=== PATIENT | male | born 1965 | race Caucasian/White ===

== ENCOUNTER 2017-04-01 19:38 | Inpatient (IN) | payer OTHER ==
[~2017-04-01] VITALS: Ht 177.8 cm; Wt 65.6 kg
[2017-04-01] VITALS (9 sets, daily range): BP systolic 139–163; BP diastolic 81–95
[~2017-04-01 19:38] MED LIST: ANAPROX DS550 M1 PO; ASPIRIN325 MG PO; COLACE100 MG PO; DIOVAN80 MG PO; FINASTERIDE5 MG PO; HYDROCODON-ACE1 EAC7 PO; KEFLEX500 MG PO; LOPRESSOR50 MG PO; LOSARTAN POTASS50 MG PO; METHADONE H5 MG/5 ML PO; METOPROLOL TART25 MG PO; OMEPRAZOLE20 MG PO; PERCOCET 5/31 TABLET PO; PLAVIX75 MG PO; SIMVASTATIN40 MG PO; TAMSULOSIN HCL0.4 MG PO; TOPROL XL100 MG PO
[2017-04-01 20:00] LABS: CREATININE 1.2 mg/dL (0.6-1.3); POTASSIUM 3.5 mEq/L (3.7-5.4)
[2017-04-01 20:04] LABS: BASOPHIL COUNT 0.1 K/uL (0-0.1); EOSINOPHIL (%) 2.9 % (0-5); EOSINOPHIL COUNT 0.3 K/uL (0-0.3); HEMATOCRIT 41.9 % (38.0-50.0); IMMATURE GRANULOCYTE (%) 0.3 % (0.0-0.7); INSTRUMENT ABS NEUTROPHIL CT 6.5 K/uL; LYMPHOCYTE COUNT 1.5 K/uL (1.0-2.8); MCH 31.6 PG (29.0-34.0); MCHC 34.1 G/DL (30.0-36.0); MCV 92.5 FL (86-99); MEAN PLAT.VOLUME 10.6 uM^3 (9.0-12.4); MONOCYTE (%) 15.1 % (3-12); MONOCYTE COUNT 1.5 K/uL (0-0.8); NEUTROPHIL (%) 66.2 % (45-76); NEUTROPHIL COUNT 6.5 K/uL (1.8-6.4); PLATELET COUNT 200 K/uL (156-360); RBC DIS.WIDTH-CV 13.4 % (11.8-14.6); RBC DIS.WIDTH-SD 45.7 % (39-53); RED BLOOD COUNT 4.53 M/uL (4.00-5.50); WHITE BLOOD COUNT 9.8 K/uL (4.1-10.2)
[2017-04-01 20:10] LABS: PROTHROMBIN TIME 11.1 SEC (10.2-12.9)
[2017-04-01 20:13] LABS: PTT 31.3 SEC (25-37)
[2017-04-01 20:24] LABS: AMYLASE 39 IU/L (1-118); ANION GAP 11 MEQ/L (2-14); CHLORIDE 98 MEQ/L (99-109); POTASSIUM 3.6 MEQ/L (3.7-5.4); SAMPLE HEMOLYSIS CHECK 0; SAMPLE ICTERIC CHECK 0; SAMPLE LIPEMIA CHECK 0; SODIUM 133 MEQ/L (136-147)
[2017-04-01 20:32] LABS: GFR ESTIMATE (CALCULATED) > 59 mL/min/ (58.99-99999); GLUCOSE 82 mg/dL (70-99); LIPASE 5 U/L (1.0-51.0); SERUM ETHYL ALCOHOL < 10 mg/dL; UREA NITROGEN (BUN) 14 mg/dL (9-23)
[2017-04-01 20:34] LABS: TROP-I INTERPRETATION NEGATIVE; TROPONIN-I 0.02 ng/mL (0.0-0.30)
[2017-04-01 23:41] LABS: METH RESISTANT S AUREUS PCR NEGATIVE (NEGATIVE)
[2017-04-01 23:42] LABS: PROBE CHECK PASS; SPECIMEN PROCESSING CONTROL PASS
[2017-04-02] VITALS (14 sets, daily range): BP systolic 115–153; BP diastolic 71–99
[2017-04-02 06:58] LABS: BASOPHIL COUNT 0.1 K/uL (0-0.1); EOSINOPHIL (%) 2.2 % (0-5); EOSINOPHIL COUNT 0.2 K/uL (0-0.3); HEMATOCRIT 42.5 % (38.0-50.0); IMMATURE GRANULOCYTE (%) 0.6 % (0.0-0.7); IMMATURE GRANULOCYTE COUNT 0.1 K/uL; INSTRUMENT ABS NEUTROPHIL CT 5.6 K/uL; LYMPHOCYTE COUNT 1.4 K/uL (1.0-2.8); MCH 31.3 PG (29.0-34.0); MCHC 32.9 G/DL (30.0-36.0); MCV 94.9 FL (86-99); MEAN PLAT.VOLUME 10.7 uM^3 (9.0-12.4); MONOCYTE COUNT 1.3 K/uL (0-0.8); NEUTROPHIL (%) 65.3 % (45-76); NEUTROPHIL COUNT 5.6 K/uL (1.8-6.4); PLATELET COUNT 184 K/uL (156-360); RBC DIS.WIDTH-CV 13.8 % (11.8-14.6); RBC DIS.WIDTH-SD 48.7 % (39-53); RED BLOOD COUNT 4.48 M/uL (4.00-5.50); WHITE BLOOD COUNT 8.5 K/uL (4.1-10.2)
[2017-04-02] MEDS ORDERED: JEVITY 1.5 CAL237 ML PO (07:13)
[2017-04-02] MEDS ORDERED: BOOST PLUS237 ML PO (07:14)
[2017-04-02 07:22] LABS: ANION GAP 7 MEQ/L (2-14); CHLORIDE 103 MEQ/L (99-109); GFR ESTIMATE (CALCULATED) > 59 mL/min/ (58.99-99999); GLUCOSE 67 mg/dL (70-99); HDL CHOLESTEROL 45 MG/DL (Desirable>=40); LDL CHOLESTEROL 61 mg/dL (Desirable<100); NON-HDL CHOLESTEROL 72 mg/dL (Desirable<160); POTASSIUM 3.8 MEQ/L (3.7-5.4); SAMPLE HEMOLYSIS CHECK 0; SAMPLE ICTERIC CHECK 0; SAMPLE LIPEMIA CHECK 0; SODIUM 139 MEQ/L (136-147); TOTAL CHOLESTEROL 117 mg/dL (Desirable<200); TRIGLYCERIDES 56 MG/DL (Normal: <150); UREA NITROGEN (BUN) 12 mg/dL (9-23)
[2017-04-02 07:26] LABS: TROP-I INTERPRETATION POSITIVE; TROPONIN-I 16.14 ng/mL (0.0-0.30)
[2017-04-02 08:02] LABS: CK-MB 121.5 ng/mL (0.0-4.9)
[2017-04-02 08:03] LABS: TOTAL CK 1194 IU/L (1-294)
[2017-04-02 08:04] LABS: CREATINE KINASE 1194 IU/L (1-294)
[2017-04-02 09:13] LABS: Estimated Average Glucose 111 mg/dL (70-123); HEMOGLOBIN A1c (GLYCOHEMOGLOB) 5.5 % HGB (Below 5.7)
[2017-04-02] MEDS ORDERED: METHADONE H5 MG/5 ML PO (09:53)
[2017-04-02] MEDS ORDERED: AMLODIPINE BESYL5 MG PO (10:08)
[2017-04-02] MEDS ORDERED: LOSARTAN-HCTZ1 EACH PO (10:08)
[2017-04-02] MEDS ORDERED: LO-DOSE ASPIRIN81 M2 PO (10:09)
[2017-04-02] MEDS ORDERED: NAPROSYN500 MG PO (10:10)
== END 2017-04-02 14:05 | disposition left against medical advice (07) | DRG 246 ==
LOC: EME → EDBD 19:38 → EME 19:38 → ENRESERV 19:49 → EME 20:32 → CATH 20:37 → 4WEST 21:09 → 2SOUTH 21:09 → 4WEST 21:54
PROVIDERS: Emergency Medicine; Internal Medicine Interventional Cardiology
DX: T82.855A Stenosis of coronary artery stent, initial encounter (principal); I21.09 ST elevation (STEMI) myocardial infarction involving other coronary artery of anterior wall; I25.10 Atherosclerotic heart disease of native coronary artery without angina pectoris; R00.1 Bradycardia, unspecified; I10 Essential (primary) hypertension; I25.5 Ischemic cardiomyopathy; I34.0 Nonrheumatic mitral (valve) insufficiency; E78.5 Hyperlipidemia, unspecified; F17.210 Nicotine dependence, cigarettes, uncomplicated; I25.2 Old myocardial infarction; Z98.61 Coronary angioplasty status; Z93.1 Gastrostomy status; Z79.82 Long term (current) use of aspirin; Z85.819 Personal history of malignant neoplasm of unspecified site of lip, oral cavity, and pharynx; Z92.21 Personal history of antineoplastic chemotherapy; Z92.3 Personal history of irradiation
CPT/HCPCS: 80047; 80048; 80061; 81003; 82150; 82550; 82550 91; 82553; 83036; 83690; 84484; 85025; 85347; 85610; 85730; 86850; 86900; 86901; 87641; 93005; 93306; 94799; 99281; 99285; C1725; C1769; C1874; C1887; C1894; G0480; J0282; J0461; J1644; J2250; J2405; J3010